=== PATIENT | male | born 1960 | race Caucasian/White ===

== ENCOUNTER 2019-06-05 10:05 | Day surgery (SDC) | payer BC, OTHER ==
[~2019-06-05 10:05] MED LIST: PROPOFOL INJ 200 MG/20 ML VIAL IV ONE
[2019-06-05] MEDS ORDERED: PROPOFOL INJ 200 MG/20 ML VIAL IV ONE (11:18)
[2019-06-05 11:56] VITALS: BP 137/90
--- NOTE | 2019-06-05 11:59 | Operative Report ---
Operative Report DATE OF SURGERY: 06/05/19 Operative Report: The risk, benefits and alternatives of the procedure including the risk of bleeding, perforation requiring surgery have been explained to the patient in detail and informed consent has been obtained. Patient is taken back to the endoscopy suite. Timeout was called. Propofol medication is administered. Rectal examination is done which did not reveal any masses, tears or fissures. An Olympus videoscope was introduced into the patient's rectum. Scope was then carefully advanced all the way to the cecum. Cecum was identified by the usual anatomical landmarks of the ileocecal valve as well as the appendiceal office. Photodocumentation is obtained. All of the segments of the colon are visualized. Retroflexion maneuvers performed. PREOPERATIVE DIAGNOSIS: Positive Cologuard test POSTOPERATIVE DIAGNOSIS: Colon polyp at the junction of the sigmoid and the descending colon status post removal snare polypectomy and retrieved. Diverticulosis without any evidence of diverticulitis. Internal hemorrhoids OPERATION: Colonoscopy with snare polypectomy SURGEON: JOHNNIE REBOLLEDO ANESTHESIA: LMAC TISSUE REMOVED OR ALTERED: As noted above. COMPLICATIONS: None. ESTIMATED BLOOD LOSS: None. INTRAOPERATIVE FINDINGS: As noted above. PROCEDURE: Patient tolerated the procedure well. No immediate postprocedure complications are noted. Patient is discharged in good condition. Discharge date 06/05/2019. Discharge diet: Regular. Discharge activity: Regular. 2 to 3-week follow-up to discuss findings. Patient is instructed call the office or proceed to the emergency room if needed 3 to 5-year surveillance colonoscopy
== END 2019-06-05 11:43 | disposition home or self-care (01) ==
LOC: END 10:05
PROVIDERS: ATTEND Internal Medicine Gastroenterology
DX: D12.4 Benign neoplasm of descending colon (principal); K64.8 Other hemorrhoids; K57.30 Diverticulosis of large intestine without perforation or abscess without bleeding; F17.210 Nicotine dependence, cigarettes, uncomplicated
CPT/HCPCS: 45385; 88305 ×2; 00811; J2704; 811

== ENCOUNTER 2020-01-19 03:08 | Observation (INO) | payer SELFPAY ==
[2020-01-19 03:54] LABS: ABSOLUTE BASOPHILS # (AUTO) 0.1 10^3/uL (0.0-0.2); ABSOLUTE EOSINOPHILS # (AUTO) 0.4 10^3/uL (0.0-0.6); ABSOLUTE LYMPHOCYTES (AUTO) 3.4 10^3/uL (0.5-4.7); ABSOLUTE MONOCYTES (AUTO) 1.1 10^3/uL (0.1-1.4); ABSOLUTE NEUT (AUTO) 4.3 10^3/uL (1.7-8.2); BASOPHILS % (AUTO) 0.6 % (0-2); EOSINOPHILS % (AUTO) 4.5 % (0-6); HEMATOCRIT 40.7 % (37.9-51.0); HEMOGLOBIN 14.2 g/dL (13.5-17.0); LYMPHOCYTES % (AUTO) 36.4 % (13-45); MEAN CORPUSCULAR HGB CONC 34.9 g/dL (32.0-36.0); MEAN CORPUSCULAR VOLUME 94 fl (80-97); PLATELET COUNT 248 10^3/uL (150-450); RED BLOOD COUNT 4.32 10^6/uL (4.35-5.55); RED CELL DISTRIBUTION WIDTH 13.3 % (11.5-14.0); SEGMENTED NEUTROPHILS % (AUTO) 46.5 % (42-78); TOTAL CELLS COUNTED % (AUTO) 100 %; WHITE BLOOD COUNT 9.3 10^3/uL (4.0-10.5)
[2020-01-19 04:09] LABS: ALBUMIN 4.1 g/dL (3.5-5.0); ALKALINE PHOSPHATASE 61 U/L (38-126); ANION GAP 10 (5-19); ASPARTATE AMINO TRANSFERASE 31 U/L (17-59); BILIRUBIN,DIRECT 0.2 mg/dL (0.0-0.4); BILIRUBIN,TOTAL 0.6 mg/dL (0.2-1.3); BLOOD UREA NITROGEN 25 mg/dL (7-20); CARBON DIOXIDE 24 mmol/L (22-30); CHLORIDE 108 mmol/L (98-107); CREATINE KINASE 346 U/L (55-170); GLUCOSE 104 mg/dL (75-110); POTASSIUM 4.1 mmol/L (3.6-5.0); TOTAL PROTEIN 6.7 g/dL (6.3-8.2)
[2020-01-19 04:21] LABS: CREATINE KINASE MB 2.83 ng/mL (<4.55); TROPONIN I < 0.012 ng/mL
--- NOTE | 2020-01-19 04:51 | ER Document Report ---
ED General - General Chief Complaint: Chest Pain Stated Complaint: CHEST PAIN NAUSEA Time Seen by Provider: 01/19/20 04:21 TRAVEL OUTSIDE OF THE [place] IN LAST 30 DAYS: No - HPI Context: This is a 59-year-old male with a history of tobacco abuse presenting to the emergency department complaining of midsternal chest pain that started approximately 2 hours prior to arrival. Patient describes the discomfort as a pressure and achy at times on the left side of his chest and the pain radiated into his left bicep. Patient states the discomfort was a 4 out of 5 at its worst and is now only a 2 out of 5. Patient states he took a couple of BC powders before he came in. Patient states that he had some nausea along with the chest discomfort. Patient states that he is not sure if he was awake or sleep when the pain started. Patient states his discomfort is now a 2 out of 5. Patient denies prior symptoms like this in the past. Patient denies exacerbating factors. Patient thinks the BC powders may have helped his symptoms some. Patient states that he believes his father side of the family has some history of cardiac disease and he has been told in the past that his cholesterol level is elevated but he has never been put on medication for this. Patient denies fever, chills, shortness of breath, loss of sense of taste or loss of sense of smell, known Covid infection, known exposure to Covid positive persons or persons under investigation for Covid. Associated symptoms: Other - See HPI Exacerbated by: Other - See HPI Relieved by: Other - See HPI Similar symptoms previously: No Recently seen / treated by doctor: No - Related Data Allergies/Adverse Reactions: No Known Allergies Allergy (Unverified 06/05/19 10:39) Past Medical History - General Information source: Patient - Social History Smoking Status: Current Every Day Smoker Lives with: Spouse/Significant other Family History: CAD Patient has suicidal ideation: No Patient has homicidal ideation: No - Past Medical History Cardiac Medical History: Denies: Hx Coronary Artery Disease, Hx Heart Attack, Hx Hypertension Pulmonary Medical History: Denies: Hx Asthma, Hx Bronchitis, Hx COPD, Hx Pneumonia Neurological Medical History: Denies: Hx Cerebrovascular Accident, Hx Seizures Musculoskeletal Medical History: Denies Hx Arthritis - Immunizations Hx Diphtheria, Pertussis, Tetanus Vaccination: No Review of Systems - Review of Systems Constitutional: No symptoms reported EENT: No symptoms reported Cardiovascular: Chest pain Respiratory: No symptoms reported Gastrointestinal: Nausea Genitourinary: No symptoms reported Male Genitourinary: No symptoms reported Musculoskeletal: Other - Left shoulder and bicep pain Skin: No symptoms reported Hematologic/Lymphatic: No symptoms reported Neurological/Psychological: No symptoms reported -: Yes All other systems reviewed and negative Physical Exam - Vital signs Vitals: Temp Pulse BP Pulse Ox 97.6 F 60 137/89 H 97 01/19/20 03:20 01/19/20 03:20 01/19/20 03:20 01/19/20 03:20 - Notes Notes: CONSTITUTIONAL [Vital signs reviewed, Patient appears comfortable, Alert and oriented X 3, Normal stature.] HEAD [Atraumatic, Normocephalic.] EYES [Eyes are normal to inspection, No discharge from eyes, Extraocular muscles intact, Sclera are normal, Conjunctiva are normal.] ENT Nose examination normal, Posterior pharynx normal, Mouth normal to inspection.] NECK [Normal ROM, No jugular venous distention, No meningeal signs, no carotid bruit.] RESPIRATORY CHEST [Chest is nontender, Breath sounds normal, No respiratory distress.] CARDIOVASCULAR [RRR, No murmurs, Normal S1 S2, No rub, No gallop.] ABDOMEN [Abdomen is nontender, No pulsatile masses, No other masses, Bowel sounds normal, No distension, No peritoneal signs, No hernias.] BACK [There is no CVA Tenderness, There is no tenderness to palpation, Normal inspection.] UPPER EXTREMITY [Inspection normal, No cyanosis, No clubbing, No edema, 2+ radial pulses.] LOWER EXTREMITY [Inspection normal, No cyanosis, No clubbing, No edema, No calf tenderness, 2+ femoral pulses.] NEURO [No focal motor deficits, No focal sensory deficits, Speech normal.] SKIN [Skin is warm, Skin is dry, Skin is normal color.] PSYCHIATRIC [Normal affect. ] Course - Re-evaluation Re-evalutation: 01/19/20 05:35 Results of ED MSE discussed with patient. Recommendation for admission discussed with patient. Patient was agreeable with this. All questions were answered. - Vital Signs Vital signs: Temp Pulse Resp BP Pulse Ox 97.6 F 60 18 118/82 96 01/19/20 03:20 01/19/20 03:20 01/19/20 06:01 01/19/20 06:01 01/19/20 06:01 - Laboratory Result Diagrams: 01/19/20 03:41 01/19/20 03:41 Laboratory results interpreted by me: 01/19/20 01/19/20 03:41 03:41 RBC 4.32 L Chloride 108 H BUN 25 H Creatine Kinase 346 H - Consults Dr. Goodwin, Hospitalist Time consulted: 05:33 - Dr. Goodwin stated he would come see pt in ED Reason for consultation: 01/19/20 05:34 chest pain relieved by nitroglycerin, heart score 4 Discharge - Discharge Clinical Impression: Tobacco abuse Chest pain Qualifiers: Chest pain type: unspecified Qualified Code(s): R07.9 - Chest pain, unspecified Condition: Stable Disposition: ADMITTED OBSERVATION Admitting Provider: Hospitalist (Christa) Unit Admitted: Telemetry
[2020-01-19] MEDS ORDERED: NITROGLYCERIN 0.4 MG/TAB 25 TAB/BOTTLE SL PRN ×2 (04:57→05:56)
[2020-01-19] MEDS ORDERED: ASPIRIN 81 MG TABLET, CHEWABLE PO ONE (04:57)
--- NOTE | 2020-01-19 05:12 | RADIOLOGY REPORT (SQ) ---
CHEST X-RAY 1 VIEW on 01/19/2020 at 4:21 AM CLINICAL INDICATION: Chest pain COMPARISON: None FINDINGS: The lungs are clear. Cardiac, hilar and mediastinal contours are within normal limits. Pulmonary vascularity is within normal limits. No bony abnormality is noted. IMPRESSION: No active disease.
[2020-01-19 06:30] LABS: CHOLESTEROL 171.33 mg/dL (0-200); TRIGLYCERIDES 84 mg/dL (<150)
--- NOTE | 2020-01-19 06:30 | PDOC H&P ---
History of Present Illness Admission Date/PCP: 01/19/2020 Patient complains of: Chest pain History of Present Illness: SHAHID HERNDON is a 59 year old male with no significant past medical history who presents with 3 hours duration of left-sided chest pain. Patient reports that he woke up around 11 PM and was not feeling generally well so he took a BC powder and few minutes following that he started experiencing a left-sided chest pain which he describes as tightness, 8/10 intensity at its worst, radiating to left shoulder, with no clear aggravating or relieving factor. He also endorses associated shortness of breath, nausea and tiredness during the incident. The pain was relieved soon after he was given nitroglycerin shortly after arriving at ER. He denies any history of similar incident in the past. He denies cough, fever, chills, hemoptysis, palpitation, dizziness or weakness of extremities. Past Medical History Cardiac Medical History: Denies: Coronary Artery Disease, Myocardial Infarction, Hypertension Pulmonary Medical History: Denies: Asthma, Bronchitis, Chronic Obstructive Pulmonary Disease (COPD), Pn eumonia Neurological Medical History: Denies: Seizures Musculoskeltal Medical History: Denies: Arthritis Hematology: Denies: Anemia Social History Lives with: Spouse/Significant other Smoking Status: Current Every Day Smoker - Advance Directive Resuscitation Status: Full Code Family History Family History: CAD Parental Family History Reviewed: Yes Children Family History Reviewed: Yes Sibling(s) Family History Reviewed.: Yes Medication/Allergy Home Medications: Clonazepam [Klonopin 1 mg Tablet] 0.5 mg PO BID 06/05/19 Omeprazole 40 mg PO DAILY 06/05/19 Allergies/Adverse Reactions: No Known Allergies Allergy (Unverified 06/05/19 10:39) Review of Systems Constitutional: ABSENT: chills, fever(s), headache(s), weight gain, weight loss Eyes: ABSENT: visual disturbances Ears: ABSENT: hearing changes Nose, Mouth, and Throat: ABSENT: as per HPI, headache(s), mouth pain, sore throat, vertigo, other Cardiovascular: PRESENT: as per HPI Respiratory: PRESENT: as per HPI Gastrointestinal: ABSENT: abdominal pain, constipation, diarrhea, hematemesis, hematochezia, nausea, vomiting Musculoskeletal: ABSENT: joint swelling Integumentary: ABSENT: rash, wounds Neurological: ABSENT: abnormal gait, abnormal speech, confusion, dizziness, focal weakness, syncope Psychiatric: ABSENT: anxiety, depression, homidical ideation, suicidal ideation Endocrine: ABSENT: cold intolerance, heat intolerance, polydipsia, polyuria Hematologic/Lymphatic: ABSENT: easy bleeding, easy bruising Allergic/Immunologic: ABSENT: as per HPI, seasonal rhinorrhea, other Physical Exam Vital Signs: Temp Pulse Resp BP Pulse Ox 97.6 F 60 17 122/78 97 01/19/20 03:20 01/19/20 03:20 01/19/20 05:10 01/19/20 05:10 01/19/20 05:10 Intake & Output 01/17/20 01/18/20 01/19/20 06:59 06:59 06:59 Weight 210 kg Additional comments: GENERAL APPEARANCE: In no acute distress, alert and oriented x4 HEENT: Normocephalic and atraumatic. No scleral icterus. PERRLA, EOM intact, moist buccal mucosa NECK: Supple. Trachea is midline. No evidence of thyroid enlargement. No lymphadenopathy or tenderness. No carotid bruit. No JVD CHEST: Symmetric. Nontender to palpation. LUNGS: Breath sounds are equal and clear bilaterally. No wheezes, rhonchi, or rales. HEART: Regular rate and rhythm with normal S1 and S2. No murmurs, gallops, or rubs. ABDOMEN: Soft, flat, normoactive bowel sound, no tenderness guarding or rigidity, no organomegaly EXTREMITIES: No cyanosis, clubbing, or edema. MUSCULOSKELETAL: No deformity, atrophy or swelling noted PSYCHIATRIC: Recent and remote memory is intact. Appropriate mood and affect. SKIN: Warm, dry, and well perfused. No lesions or rashes are noted. NEUROLOGIC: No focal sensory or motor deficits are noted. Results Laboratory Results: 01/19/20 03:41 01/19/20 03:41 01/19/20 01/19/20 03:41 03:41 WBC 9.3 RBC 4.32 L Hgb 14.2 Hct 40.7 MCV 94 MCH 33.0 MCHC 34.9 RDW 13.3 Plt Count 248 Seg Neutrophils % 46.5 Sodium 141.6 Potassium 4.1 Chloride 108 H Carbon Dioxide 24 Anion Gap 10 BUN 25 H Creatinine 1.06 Est GFR ( Amer) > 60 Glucose 104 Calcium 10.0 Total Bilirubin 0.6 AST 31 Alkaline Phosphatase 61 Total Protein 6.7 Albumin 4.1 01/19/20 01/19/20 03:41 03:41 Creatine Kinase 346 H CK-MB (CK-2) 2.83 Troponin I < 0.012 Impressions: Chest X-Ray 01/19/20 03:26 IMPRESSION: No active disease. Assessment and Plan - Diagnosis (1) Chest pain Qualifiers: Chest pain type: unspecified Qualified Code(s): R07.9 - Chest pain, unspecified Is this a current diagnosis for this admission?: Yes Plan: Patient presents with typical chest pain which is relieved with nitroglycerin Pain is nonreproducible on physical exam Initial troponin negative EKG showed no ST-T wave changes Trend cardiac enzymes and EKG every 6 hourly x2 Sublingual nitroglycerin as needed Aspirin 81 mg daily, atorvastatin 40 mg p.o. nightly Obtain lipid panel, A1c If cardiac enzymes and EKG are negative will likely be discharged after stress test (2) Tobacco abuse Is this a current diagnosis for this admission?: Yes Plan: Smokes 1-1 2/2 pack per day Extensively discussed the harms associated with smoking and counseled him to quit Offered nicotine patch while inpatient but patient declined (3) Hyperlipidemia Qualifiers: Hyperlipidemia type: unspecified Qualified Code(s): E78.5 - Hyperlipidemia, unspecified Is this a current diagnosis for this admission?: Yes Plan: Patient was previously told that he has elevated cholesterol Was not in any lipid-lowering agents We will check lipid panel on this encounter Started on atorvastatin - Time Time Spent with patient: 35 or more minutes Total Critical Time (Minutes): 35 Smoking Cessation Education: 3 to 10 minutes Medications reviewed and adjusted accordingly: Yes Anticipated Discharge Disposition: Home, Self Care Anticipated Discharge Timeframe: within 48 hours - Inpatient Certification Medical Necessity: Need Close Monitoring Due to Risk of Patient Decompensation, Need For Continuous Telemetry Monitoring Post Hospital Care: D/C or Transfer Summary
[2020-01-19 06:41] LABS: DIRECT LDL 111 mg/dL (<100)
[2020-01-19] MEDS ORDERED: ASPIRIN 81 MG TABLET, ENT COATED PO SCH (10:00)
[2020-01-19 10:46] LABS: CREATINE KINASE MB 2.31 ng/mL (<4.55)
[2020-01-19 10:50] LABS: TROPONIN I < 0.012 ng/mL
[2020-01-19 13:53] VITALS: BP 139/80
--- NOTE | 2020-01-19 15:58 | EKG REPORT ---
SEVERITY:- BORDERLINE ECG - SINUS RHYTHM : Confirmed by: Gerardo Anna MD 19-Jan-2020 15:57:53
--- NOTE | 2020-01-19 16:23 | PDOC DISCHARGE SUMMARY ---
Impression - Admit/DC Date/PCP Admission Date/Primary Care Provider: 01/19/20 06:47 Discharge Date: 01/19/20 - Assessment Summary: (1) Chest pain Qualifiers: Chest pain type: unspecified Qualified Code(s): R07.9 - Chest pain, unspecified Is this a current diagnosis for this admission?: Yes Plan: Patient presents with typical chest pain which is relieved with nitroglycerin Pain is nonreproducible on physical exam Initial troponin negative EKG showed no ST-T wave changes Trend cardiac enzymes and EKG every 6 hourly x2 Sublingual nitroglycerin as needed Aspirin 81 mg daily, atorvastatin 40 mg p.o. nightly Obtain lipid panel, A1c If cardiac enzymes and EKG are negative will likely be discharged after stress test 01/19/2020-patient came in complaints of left-sided chest pain. Patient admitted he is under a lot of stress lately. Troponins are negative. EKG is within normal limits. Patient was given a prescription for aspirin, atorvastatin and discharged home. Case was discussed with Dr. Collins is agreed to see the patient in his office and to the stress test as an outpatient. (2) Tobacco abuse Is this a current diagnosis for this admission?: Yes Plan: Smokes 1-1 2/2 pack per day Extensively discussed the harms associated with smoking and counseled him to quit Offered nicotine patch while inpatient but patient declined (3) Hyperlipidemia Qualifiers: Hyperlipidemia type: unspecified Qualified Code(s): E78.5 - Hyperlipidemia, unspecified Is this a current diagnosis for this admission?: Yes Plan: Patient was previously told that he has elevated cholesterol Was not in any lipid-lowering agents We will check lipid panel on this encounter Started on atorvastatin - Additional Information Resuscitation Status: Full Code Discharge Diet: Cardiac Discharge Activity: Activity As Tolerated Referrals: REBEL SINGLETON MD [ACTIVE STAFF] - 01/19/20 (01/19/20 1141 called providers office and left a message for them to contact pt with follow up apt details ) MICHAEL LAM DO [NO LOCAL MD] - 02/01/20 11:00 am Prescriptions: Aspirin [Ecotrin 81 mg EC Tablet] 81 mg PO DAILY 30 Days #30 tabec Atorvastatin Calcium [Lipitor 40 mg Tablet] 40 mg PO QHS 30 Days #30 tablet Nitroglycerin [Nitrostat 0.4 mg (1/150 Gr) Tabs 25/Bottle] 1 tab SL Q5MP PRN 30 Days #90 bottle PRN Reason: Home Medications: Aspirin [Ecotrin 81 mg EC Tablet] 81 mg PO DAILY 30 Days #30 tabec 01/19/20 Atorvastatin Calcium [Lipitor 40 mg Tablet] 40 mg PO QHS 30 Days #30 tablet 01/19/20 Nitroglycerin [Nitrostat 0.4 mg (1/150 Gr) Tabs 25/Bottle] 1 tab SL Q5MP PRN 30 Days #90 bottle 01/19/20 History of Present Illiness History of Present Illness: SHAHID HERNDON is a 59 year old male 59 year old male with no significant past medical history who presents with 3 hours duration of left-sided chest pain. Patient reports that he woke up around 11 PM and was not feeling generally well so he took a BC powder and few minutes following that he started experiencing a left-sided chest pain which he describes as tightness, 8/10 intensity at its worst, radiating to left shoulder, with no clear aggravating or relieving factor. He also endorses associated shortness of breath, nausea and tiredness during the incident. The pain was relieved soon after he was given nitroglycerin shortly after arriving at ER. He denies any history of similar incident in the past. He denies cough, fever, chills, hemoptysis, palpitation, dizziness or weakness of extremities. Hospital Course Hospital Course: 67-year-old male chronic smoker admitted with left-sided chest pain. Troponins are negative. EKG is within normal limits. Patient agreed to go home onto the stress test and outpatient Dr. collins office. He was given a prescription for aspirin, cholesterol medication. Symptoms are recurred he was advised to come to the ER [facility]. Case is discussed with Dr. Collins this morning he agreed to see the patient in his office and arrange for stress test as an outpatient. Physical Exam Vital Signs: Temp Pulse Resp BP Pulse Ox 97.7 F 53 L 16 139/80 H 96 01/19/20 13:50 01/19/20 13:50 01/19/20 13:50 01/19/20 13:50 01/19/20 13:50 Intake & Output 01/18/20 01/19/20 01/20/20 06:59 06:59 06:59 Weight 89.5 kg General appearance: PRESENT: no acute distress, well-developed Head exam: PRESENT: atraumatic Eye exam: PRESENT: PERRLA Mouth exam: PRESENT: moist, tongue midline Teeth exam: PRESENT: poor dentation Neck exam: ABSENT: carotid bruit, JVD, lymphadenopathy, thyromegaly Respiratory exam: PRESENT: clear to auscultation nain. ABSENT: rales, rhonchi, wheezes Cardiovascular exam: PRESENT: RRR. ABSENT: diastolic murmur, rubs, systolic murmur GI/Abdominal exam: PRESENT: normal bowel sounds, soft. ABSENT: distended, guarding, mass, organolmegaly, rebound, tenderness Rectal exam: PRESENT: deferred Extremities exam: PRESENT: full ROM. ABSENT: calf tenderness, clubbing, pedal edema Neurological exam: PRESENT: alert, awake, oriented to person, oriented to place, oriented to time, oriented to situation, CN II-XII grossly intact. ABSENT: motor sensory deficit Psychiatric exam: PRESENT: appropriate affect, normal mood. ABSENT: homicidal ideation, suicidal ideation Skin exam: PRESENT: dry, intact, warm. ABSENT: cyanosis, rash Results Laboratory Results: WBC 9.3 10^3/uL (4.0-10.5) 01/19/20 03:41 RBC 4.32 10^6/uL (4.35-5.55) L 01/19/20 03:41 Hgb 14.2 g/dL (13.5-17.0) 01/19/20 03:41 Hct 40.7 % (37.9-51.0) 01/19/20 03:41 MCV 94 fl (80-97) 01/19/20 03:41 MCH 33.0 pg (27.0-33.4) 01/19/20 03:41 MCHC 34.9 g/dL (32.0-36.0) 01/19/20 03:41 RDW 13.3 % (11.5-14.0) 01/19/20 03:41 Plt Count 248 10^3/uL (150-450) 01/19/20 03:41 Lymph % (Auto) 36.4 % (13-45) 01/19/20 03:41 [place] % (Auto) 12.0 % (3-13) 01/19/20 03:41 Eos % (Auto) 4.5 % (0-6) 01/19/20 03:41 Baso % (Auto) 0.6 % (0-2) 01/19/20 03:41 Absolute Neuts (auto) 4.3 10^3/uL (1.7-8.2) 01/19/20 03:41 Absolute Lymphs (auto) 3.4 10^3/uL (0.5-4.7) 01/19/20 03:41 Absolute Monos (auto) 1.1 10^3/uL (0.1-1.4) 01/19/20 03:41 Absolute Eos (auto) 0.4 10^3/uL (0.0-0.6) 01/19/20 03:41 Absolute Basos (auto) 0.1 10^3/uL (0.0-0.2) 01/19/20 03:41 Seg Neutrophils % 46.5 % (42-78) 01/19/20 03:41 Sodium 141.6 mmol/L (137-145) 01/19/20 03:41 Potassium 4.1 mmol/L (3.6-5.0) 01/19/20 03:41 Chloride 108 mmol/L (98-107) H 01/19/20 03:41 Carbon Dioxide 24 mmol/L (22-30) 01/19/20 03:41 Anion Gap 10 (5-19) 01/19/20 03:41 BUN 25 mg/dL (7-20) H 01/19/20 03:41 Creatinine 1.06 mg/dL (0.52-1.25) 01/19/20 03:41 Est GFR ( Amer) > 60 (>60) 01/19/20 03:41 Est GFR (MDRD) Non-Af > 60 (>60) 01/19/20 03:41 Glucose 104 mg/dL (75-110) 01/19/20 03:41 Hemoglobin A1c % 5.0 % (4.7-6.0) 01/19/20 03:41 Calcium 10.0 mg/dL (8.4-10.2) 01/19/20 03:41 Total Bilirubin 0.6 mg/dL (0.2-1.3) 01/19/20 03:41 Direct Bilirubin 0.2 mg/dL (0.0-0.4) 01/19/20 03:41 Neonat Total Bilirubin Not Reportable 01/19/20 03:41 Neonat Direct Bilirubin Not Reportable 01/19/20 03:41 Neonat Indirect Bili Not Reportable 01/19/20 03:41 AST 31 U/L (17-59) 01/19/20 03:41 ALT 15 U/L (<50) 01/19/20 03:41 Alkaline Phosphatase 61 U/L (38-126) 01/19/20 03:41 Creatine Kinase 254 U/L (55-170) H 01/19/20 09:48 CK-MB (CK-2) 2.31 ng/mL (<4.55) 01/19/20 09:48 Troponin I < 0.012 ng/mL 01/19/20 09:48 Total Protein 6.7 g/dL (6.3-8.2) 01/19/20 03:41 Albumin 4.1 g/dL (3.5-5.0) 01/19/20 03:41 Triglycerides 84 mg/dL (<150) 01/19/20 03:41 Cholesterol 171.33 mg/dL (0-200) 01/19/20 03:41 LDL Cholesterol Direct 111 mg/dL (<100) H 01/19/20 03:41 VLDL Cholesterol 17.0 mg/dL (10-31) 01/19/20 03:41 HDL Cholesterol 40 mg/dL (>40) 01/19/20 03:41 01/19/20 01/19/20 01/19/20 03:41 06:48 09:48 CK-MB (CK-2) 2.83 2.31 Troponin I < 0.012 < 0.012 < 0.012 Impressions: Chest X-Ray 01/19/20 03:26 IMPRESSION: No active disease. Plan Time Spent: Greater than 30 Minutes Stroke Is this a Stroke Patient?: No Acute Heart Failure Is this a Heart Failure Patient?: No
[2020-01-19] MEDS ORDERED: ATORVASTATIN CALCIUM 40 MG TABLET PO SCH (22:00)
== END 2020-01-19 14:40 | disposition home or self-care (01) ==
LOC: ER 03:08 → EH 06:47 → 4S 07:57
PROVIDERS: ADMIT Student in an Organized Health Care Education/Training Program; ATTEND Internal Medicine
DX: R07.89 Other chest pain (principal); Z73.3 Stress, not elsewhere classified; F17.210 Nicotine dependence, cigarettes, uncomplicated; E78.5 Hyperlipidemia, unspecified; R06.02 Shortness of breath; R11.0 Nausea; R53.83 Other fatigue; M25.512 Pain in left shoulder; M79.18 Myalgia, other site; Z82.49 Family history of ischemic heart disease and other diseases of the circulatory system
CPT/HCPCS: 93005; 99285; 82553; 82550; 85025; 80053; 84484; 83036; 80061; 71045; 93010; 99406; G0378 ×2; 36415